=== PATIENT | female | born 1955 | race Caucasian/White ===

== ENCOUNTER 2018-01-10 18:27 | Emergency (ER) | payer OTHER, MEDICAID ==
[2018-01-10 18:38] VITALS: BP 109/64; PULSE 65; RESP 20; TEMP 97.3; O2SAT 94
--- NOTE | 2018-01-10 18:44 | EDPHY ---
H & P Stated Complaint: pulled back last bending over/increasing pain Time Seen by Provider: 01/10/18 18:44 HPI/ROS: CHIEF COMPLAINT: Low back pain HISTORY OF PRESENT ILLNESS: The patient presents to the ED with complaints of persistent low back pain after she injured herself bending over last . The patient is also complaining of some pain into her hips bilaterally. She denies any acute numbness, weakness, bowel or bladder dysfunction. The patient has no history of fever or weight loss. The patient has no history of IV drug use. The patient denies history of malignancy. The patient reports that her pain is worsened with movement. She denies additional injury. REVIEW OF SYSTEMS: A comprehensive 10 point review of systems is otherwise negative aside from elements mentioned in the history of present illness. Source: Patient Exam Limitations: No limitations - Personal History Current Tetanus/Diphtheria Vaccine: Unsure - Medical/Surgical History Hx Asthma: No Hx Chronic Respiratory Disease: No Hx Diabetes: No Hx Cardiac Disease: No Hx Renal Disease: No Hx Cirrhosis: No Hx Alcoholism: No Hx HIV/AIDS: No Hx Splenectomy or Spleen Trauma: No Other PMH: TBI - Social History Smoking Status: Never smoked - Physical Exam Exam: General Appearance: Alert, no distress Head: Atraumatic Neck: [Nontender, trachea midline Back: Mild lumbar paraspinal muscular tenderness, no midline tenderness Extremities: Nontender, full range of motion Neurological: 5/5 strength noted bilateral lower extremities, DTRs 2+ at the knees bilaterally, sensation intact to light touch Constitutional: Initial Vital Signs Temperature (C) 36.3 C 01/10/18 18:33 Heart Rate 65 01/10/18 18:33 Respiratory Rate 20 01/10/18 18:33 Blood Pressure 109/64 01/10/18 18:33 O2 Sat (%) 94 01/10/18 18:33 O2 Delivery Mode Room Air Allergies/Adverse Reactions: No Known Allergies Allergy (Unverified 01/10/18 18:32) Home Medications: Medication Instructions Recorded CAM GARZA 01/10/18 Medical Decision Making - Diagnostics Imaging Results: Lumbar spine x-ray: Images reviewed by myself, negative for obvious DJD or compression fracture. ED Course/Re-evaluation: The patient presents the ED for evaluation of back pain with some radiation to her groin area bilaterally. The patient was noted to be neurologically intact. She has no lower extremity weakness or saddle anesthesia. There are no symptoms consistent with a cauda equina type syndrome. The patient was taken for a lumbar spine x-ray which demonstrates no obvious compression fracture or DJD. The patient will be advised to begin taking some NSAIDs for management of her symptoms. I have told her that I cannot fully exclude the possibility of lumbar radiculopathy however there is no evidence of a neurosurgical emergency. I have advised the patient to manage her symptoms with NSAIDs and return to the ED for the development of any weakness, bowel or bladder dysfunction or worsening symptoms. The patient can follow up with our on-call inventory management specialist for any ongoing unimproved symptoms. Differential Diagnosis: Differential diagnosis considered includes compression fracture, lumbar DJD, sciatica Departure - Departure Disposition: Home, Routine, Self-Care Clinical Impression: Back strain Condition: Good Instructions: Low Back Strain (ED) Additional Instructions: 1. Take Ibuprofen or Motrin 600 mg by mouth three times a day. 2. Flexeril as needed for muscle spasm. 3. Please return to the ED for markedly worsening pain, weakness, bowel or bladder dysfunction. 4. Your x-ray demonstrates no evidence of an obvious compression fracture. 5. If you continue to have any ongoing symptoms I do recommend following up with our inventory management specialist Dr. Wolff. Referrals: Didi Reid MD [Primary Care Provider] - As per Instructions Cuate Wolff MD [Medical Doctor] - As per Instructions
== END 2018-01-10 19:51 | disposition home or self-care (01) ==
DX: S39.012A Strain of muscle, fascia and tendon of lower back, initial encounter (principal); X50.9XXA Other and unspecified overexertion or strenuous movements or postures, initial encounter